=== PATIENT | female | born 1950 | race Caucasian/White ===

== ENCOUNTER → 2017-11-08 | Outpatient (CLI) | payer MEDICARE, OTHER ==
[2017-11-08 14:58] LABS: HCT 39.2 % (34.0-46.0); HGB 12.7 gm/dL (11.4-16.0); MCH 28.1 pg (25.0-35.0); MCHC 32.4 g/dL (31.0-37.0); MCV 86.9 fL (80.0-100.0); Mean Platelet Volume 7.8; Platelet Count 213 k/uL (150-450); RBC 4.51 m/uL (3.80-5.40); RDW 12.5 % (11.5-15.5); WBC 5.6 k/uL (3.8-10.6)
[2017-11-08 15:07] LABS: Albumin 4.1 g/dL (3.5-5.0); Calcium 10.9 mg/dL (8.4-10.2); Phosphorus 2.8 mg/dL (2.5-4.5); Potassium 4.8 mmol/L (3.5-5.1); Total Bilirubin 0.4 mg/dL (0.2-1.3); Total Protein 6.8 g/dL (6.3-8.2)
[2017-11-08 15:57] LABS: Appearance,Urine Clear (Clear); Bacteria,Urine Rare /hpf; Bilirubin,Urine Negative (Negative); Blood,Urine Moderate (Negative); Color,Urine Light Yellow; Glucose,Urine (UA) Negative (Negative); Ketones,Urine Negative (Negative); Leukocyte Esterase,Urine Trace (Negative); Nitrite,Urine Negative (Negative); Protein,Urine Negative (Negative); RBC,Urine 1 /hpf (0-5); Specific Gravity,Urine 1.004 (1.001-1.035); Squamous Epithelial Cell,Urine <1 /hpf (0-4); Urobilinogen,Urine <2.0 mg/dL (<2.0); WBC,Urine 9 /hpf (0-5)
== END | disposition home or self-care (01) ==
LOC: LABWHC1 14:22
PROVIDERS: ATTEND Internal Medicine
DX: D64.9 Anemia, unspecified (principal); E83.39 Other disorders of phosphorus metabolism; N39.0 Urinary tract infection, site not specified
CPT/HCPCS: 36415; 80053; 81001; 84100; 85027

== ENCOUNTER → 2017-11-08 | Outpatient (CLI) | payer MEDICARE, OTHER ==
--- NOTE | 2017-11-09 09:13 | US ---
EXAMINATION TYPE: US kidneys/renal and bladder DATE OF EXAM: 11/08/2017 COMPARISON: US CLINICAL HISTORY: R31.9 HEMATURIA,N39.0 FREQ URINARY TRACT INFECTION; self catheterizes since spinal surgery for tumor; bladder suspension EXAM MEASUREMENTS: Right Kidney: 9.6 x 4.7 x 3.6 cm Left Kidney: 10.7 x 5.0 x 5.3 cm Post Void Residual Volume: 8.8 mL Right Kidney: upper lateral cortical cyst (too small to characterize) = 0.6 x 0.7 x 0.4cm; lateral lo wer hyperechoic round focus (angiomyolipoma) = 0.7 x 0.6 x 0.5cm; on image #[id number] sonographic" sweat s ign" is noted as hypoechoic crescent shaped area adjacent to lower periphery. Left Kidney: multiple cortical cysts noted with largest inferior pole as simple cyst = 1.0 x 1.2 x 1. 1cm. Bladder: Image 768 demonstrates focal thickening posterior left laterally. Bilateral Jets seen: Yes Normal Post Void Residual: Yes IMPRESSION: 1. Urinary bladder is incompletely distended with circumferential wall thickening and trabeculation t hat may partially relate to incomplete distention, chronic urinary tract infection and partially rela te to postoperative change. However there is a focal area of thickening on a single image only in the posterior left lateral aspect of the urinary bladder on image 768 that could represent hemorrhage, t hick trabeculation, or less likely neoplasm. CT urogram could be performed for further evaluation. 2. Sequela of medical renal disease, bilateral renal cysts (2 of which are too small to accurately ch aracterize) and a benign right lower pole angiomyolipoma.
== END | disposition home or self-care (01) ==
LOC: RADUSWWP 13:28
PROVIDERS: ATTEND Urology
DX: R31.9 Hematuria, unspecified (principal); N39.0 Urinary tract infection, site not specified; N28.9 Disorder of kidney and ureter, unspecified; Q61.02 Congenital multiple renal cysts; D17.72 Benign lipomatous neoplasm of other genitourinary organ
CPT/HCPCS: 76770

== ENCOUNTER 2021-05-20 21:30 | Emergency (ER) | payer MEDICARE, OTHER ==
--- NOTE | 2021-05-20 21:50 | ED ---
ENT HPI - General Stated complaint: Nose Bleed Time Seen by Provider: 05/20/21 21:45 Source: RN notes reviewed, old records reviewed Limitations: no limitations - History of Present Illness Initial comments: This is a 70-year-old female to the emergency department today. Patient presents today for evaluation regards to nasal bleeding. Patient has significant bleeding from her nose. No blood thinners. No other complaints or trauma. MD complaint: epistaxis -: hour(s) Severity: moderate Severity scale (1-10): 4 Consistency: constant Improves with: none Worsens with: none Context-Epistaxis: other (Hypertension) Associated Symptoms: other (none) - Related Data Previous Rx's Medication Instructions Recorded Losartan/Hydrochlorothiazide 1 tab PO DAILY #60 tab 05/20/21 [Hyzaar 50-12.5 Tablet] Allergies Allergy/AdvReac Type Severity Reaction Status Date / Time enalaprilat [From Vasotec] AdvReac Nausea Verified 05/20/21 21:57 escitalopram [From Lexapro] AdvReac Nausea Verified 05/20/21 21:57 Review of Systems ROS Statement: Those systems with pertinent positive or pertinent negative responses have been documented in the HPI. ROS Other: All systems not noted in ROS Statement are negative. General Exam General appearance: alert, in no apparent distress Head exam: Present: atraumatic, normocephalic, normal inspection Eye exam: Present: normal appearance, PERRL, EOMI. Absent: scleral icterus, conjunctival injection, periorbital swelling ENT exam: Present: normal exam, mucous membranes moist Neck exam: Present: normal inspection. Absent: tenderness, meningismus, lymphadenopathy Respiratory exam: Present: normal lung sounds bilaterally. Absent: respiratory distress, wheezes, rales, rhonchi, stridor Cardiovascular Exam: Present: regular rate, normal rhythm, normal heart sounds. Absent: systolic murmur, diastolic murmur, rubs, gallop, clicks GI/Abdominal exam: Present: soft, normal bowel sounds. Absent: distended, tenderness, guarding, rebound, rigid Extremities exam: Present: normal inspection, full ROM, normal capillary refill. Absent: tenderness, pedal edema, joint swelling, calf tenderness Back exam: Present: normal inspection Neurological exam: Present: alert, oriented X3, CN II-XII intact Psychiatric exam: Present: normal affect, normal mood Skin exam: Present: warm, dry, intact, normal color. Absent: rash Course Vital Signs 05/20/21 05/20/21 05/20/21 21:48 22:30 23:15 Temperature 98.9 F Pulse Rate 96 92 91 Respiratory 18 18 18 Rate Blood Pressure 183/84 160/141 162/84 O2 Sat by Pulse 95 95 96 Oximetry - Reevaluation(s) Reevaluation #1: Medical record is reviewed Patient symptoms are improved here in the ER Patient informed results and questions answered Patient is in no acute distress Medical Decision Making - Medical Decision Making 70 female with right-sided epistaxis. Nose is packed bleeding is stopped and patient can be discharged home Disposition Clinical Impression: Right-sided epistaxis, Hypertension Disposition: HOME SELF-CARE Condition: Good Instructions (If sedation given, give patient instructions): Nosebleed (ED), Hypertension (ED) Prescriptions: Losartan/Hydrochlorothiazide [Hyzaar 50-12.5 Tablet] 1 tab PO DAILY #60 tab Is patient prescribed a controlled substance at d/c from ED?: No Referrals: Jerry Chu MD [Primary Care Provider] - 1-2 days
[2021-05-20 21:55] VITALS: RESP 18; TEMP 98.9
[2021-05-20] MEDS ORDERED: SILVER NITRATE APPLICATOR 1 EACH STICK..EA. TOPICAL STA (21:56)
[2021-05-20] MEDS ORDERED: LOSARTAN-HCTZ 50-12.5 MG 1 EACH TAB PO STA (22:18)
[2021-05-20 23:17] VITALS: BP 162/84; PULSE 91
== END 2021-05-21 00:15 | disposition home or self-care (01) ==
LOC: EC 21:30
DX: R04.0 Epistaxis (principal); I10 Essential (primary) hypertension
CPT/HCPCS: 99283

== ENCOUNTER 2023-04-01 21:55 | Emergency (ER) | payer MEDICARE, OTHER ==
[2023-04-01 22:06] VITALS: RESP 18
[2023-04-01] MEDS ORDERED: MORPHINE SULFATE 4 MG/ML SYRINGE IV STA (22:22)
--- NOTE | 2023-04-01 22:34 | CT ---
EXAM: CT Head Without Intravenous Contrast CLINICAL HISTORY: ITS.REASON CT Reason: Neuro deficit, acute, stroke suspected TECHNIQUE: Axial computed tomography images of the head/brain without intravenous contrast. CTDI is 27.06 mGy and DLP is 617 mGy-cm. This CT exam was performed using one or more of the following dose reduction techniques: automated exposure control, adjustment of the mA and/or kV according to patient size, and/or use of iterative reconstruction technique. COMPARISON: None. FINDINGS: Brain: No mass effect or acute infarct. No acute hemorrhage. Mild atrophy and chronic white matter disease. Ventricles: No hydrocephalus or midline shift. Bones/joints: No skull fracture. Soft tissues: No scalp hematoma. Sinuses: Clear. Mastoid air cells: No mastoid effusion. IMPRESSION: 1. Mild age-related findings. 2. No acute infarct, bleed, or acute intracranial abnormality.
--- NOTE | 2023-04-01 22:44 | CT ---
ADDENDUM - Added by Nohemi Duong M.D. on 04/01/2023 10:56 PM (-07:00) d/w Lynne: minimal left fd, left arm weakness. EXAM: CT Angiography Head With Intravenous Contrast CLINICAL HISTORY: ITS.REASON CT Reason: Neuro deficit, acute, stroke suspected TECHNIQUE: Axial computed tomographic angiography images of the head with intravenous contrast. CTDI is 27.06 mGy and DLP is 617 mGy-cm. This CT exam was performed using one or more of the following dose reduction techniques: automated exposure control, adjustment of the mA and/or kV according to patient size, and/or use of iterative reconstruction technique. MIP reconstructed images were created and reviewed. 65 ML Isovue-370 given IV. COMPARISON: None. FINDINGS: Right internal carotid artery: Patent. Right anterior cerebral artery: Patent. Right middle cerebral artery: Severe, long segment distal M1 stenosis. Right posterior cerebral artery: Patent. Right vertebral artery: Patent. Left internal carotid artery: Patent. Left anterior cerebral artery: Patent. Left middle cerebral artery: Patent. Left posterior cerebral artery: Patent. Left vertebral artery: Patent. Basilar artery: Patent. Other: IMPRESSION: 1. Severe right M1 stenosis. 2. No aneurysm or large vessel occlusion. EXAM: CT Angiography Neck With Intravenous Contrast CLINICAL HISTORY: ITS.REASON CT Reason: Neuro deficit, acute, stroke suspected TECHNIQUE: Routine carotid CT angiography protocol was performed with intravenous contrast. NASCET criteria using the distal ICAs for comparison were used for evaluation of stenoses. CTDI is 27.06 mGy and DLP is 617 mGy-cm. This CT exam was performed using one or more of the following dose reduction techniques: automated exposure control, adjustment of the mA and/or kV according to patient size, and/or use of iterative reconstruction technique. MIP reconstructed images were created and reviewed. 65 ML Isovue-370 given IV. COMPARISON: None. FINDINGS: Right common carotid artery: Patent. Right internal carotid artery: Patent. Right vertebral artery: Patent. Left common carotid artery: Patent. Left internal carotid artery: Patent. Left vertebral artery: Patent. Other: Severe ectatic ICA with mild atherosclerosis. No significant stenosis. Thyromegaly with multiple nodules and left-sided calcification. 5 mm right upper lobe pulmonary nodule. Lungs are incompletely evaluated, and the thyroid gland is not optimally evaluated by CT. IMPRESSION: 1. Ectatic ICA with mild atherosclerosis. 2. No dissection, occlusion, or significant stenosis. 3. 5 mm right upper lobe pulmonary nodule and thyromegaly with multiple nodules. CAROTID STENOSIS REFERENCE USING NASCET CRITERIA: % ICA stenosis = (1 - narrowest ICA diameter/diameter of distal cervical ICA) x 100. Mild - <50% stenosis. Moderate - 50-69% stenosis. Severe - 70-94% stenosis. Near occlusion - 95-99% stenosis. Occluded - 100% stenosis. <MYCVCSECTION> Communications: 04/01/23 22:49 Call Doctor Regarding Above results, called Dr. Batista on 04/01 22:49 (-04:00)
[2023-04-01 22:49] LABS: Basophils # (A) 0.1 k/uL (0-0.2); Basophils % (A) 1 %; Eosinophils # (A) 0.3 k/uL (0-0.7); Eosinophils % (A) 3 %; HCT 44.2 % (34.0-46.0); HGB 14.2 gm/dL (11.4-16.0); Hypochromasia Slight; Lymphocytes # (A) 1.6 k/uL (1.0-4.8); Lymphocytes % (A) 19 %; MCH 28.1 pg (25.0-35.0); MCHC 32.1 g/dL (31.0-37.0); MCV 87.4 fL (80.0-100.0); Mean Platelet Volume 7.8; Monocytes # (A) 0.4 k/uL (0-1.0); Monocytes % (A) 5 %; Neutrophils # (A) 5.9 k/uL (1.3-7.7); Neutrophils % (A) 71 %; Platelet Count 227 k/uL (150-450); RBC 5.06 m/uL (3.80-5.40); RDW 13.3 % (11.5-15.5); WBC 8.3 k/uL (3.8-10.6)
[2023-04-01 22:56] LABS: INR 0.9 (<1.2)
[2023-04-01 22:57] LABS: Partial Thromboplastin Time 23.1 sec (22.0-30.0); Prothrombin Time 9.8 sec (9.0-12.0)
[2023-04-01 22:58] LABS: ALT 19 U/L (4-34); AST 27 U/L (14-36); African American GFR (CKD) 48 (>60 ml/min/1.73 sqM); Albumin 4.4 g/dL (3.5-5.0); Alkaline Phosphatase 123 U/L (38-126); Anion Gap 9 mmol/L; Blood Urea Nitrogen 33 mg/dL (7-17); Calcium 10.2 mg/dL (8.4-10.2); Carbon Dioxide 28 mmol/L (22-30); Chloride 99 mmol/L (98-107); Creatine Kinase 80 U/L (30-135); Glucose 115 mg/dL (74-99); Non-African American GFR(CKD) 42 (>60 ml/min/1.73 sqM); Potassium 4.4 mmol/L (3.5-5.1); Sodium 136 mmol/L (137-145); Total Bilirubin 0.6 mg/dL (0.2-1.3); Total Protein 7.6 g/dL (6.3-8.2)
[2023-04-01] MEDS ORDERED: TICAGRELOR 90 MG TAB PO STA (23:31)
[2023-04-01] MEDS ORDERED: ASPIRIN 81 MG PO STA (23:31)
--- NOTE | 2023-04-01 23:31 | ED ---
Neuro HPI - General Chief Complaint: Neuro Symptoms/Deficit Stated Complaint: Possible TIA Time Seen by Provider: 04/01/23 22:04 Source: patient, EMS Mode of arrival: EMS Limitations: no limitations - History of Present Illness Is the patient presenting with stroke symptoms?: Yes Last Known Well Date: 04/01/23 Last Known Well Time: 19:30 -: hour(s) Initial Comments: This patient is 72-year-old woman who arrives from home by ambulance with complaint of left-sided weakness. The patient states she noticed that she was having some numbness of the left side of her face and left arm that started around 7:30. She states that she wanted to get into bed but found she was having hard time moving her left arm. The patient was eventually able to push herself backward until she reached the counter where the phone was and she called EMS. The patient states she has underlying history of low back tumor. He states that this was found when she was in her mid 20s. She had a surgery performed a hospital in [place], but she is not able to recall the name of the tumor. She subsequently had 3 radiation treatments. She states that the tumor has slowly recurred and now she is not able to walk due to the tumor. She does have chronic leg pain as well. Patient denies headache, change in vision. She has not noted change in speech or swallowing. Location: left face, left arm, left leg History of same: No Place: home Severity: moderate Quality: weak, numb Improves With: none Worsens With: none On Anticoagulants: No Context: sudden onset Associated Symptoms: denies other symptoms Treatments Prior to Arrival: none - Related Data Home Medications: Home Medications Medication Instructions Recorded Confirmed Aspirin EC [Ecotrin Low Dose] 81 mg PO HS 04/01/23 04/01/23 Ergocalciferol [Vitamin D2 (1250 1,250 mcg PO Q7D 04/01/23 04/01/23 Mcg = 07644 Iu)] Furosemide [Lasix] 20 mg PO HS 04/01/23 04/01/23 HYDROcodone/APAP 10-325MG [Chandler 1 tab PO TID 04/01/23 04/01/23 10-325] Trimethoprim [Trimpex] 100 mg PO HS 04/01/23 04/01/23 Allergies/Adverse Reactions: Allergies Allergy/AdvReac Type Severity Reaction Status Date / Time ezetimibe [From Zetia] Allergy Unknown Verified 04/01/23 22:47 enalaprilat [From Vasotec] AdvReac Nausea Verified 04/01/23 22:47 escitalopram [From Lexapro] AdvReac Nausea Verified 04/01/23 22:47 losartan AdvReac Swelling Verified 04/01/23 22:47 legs Review of Systems ROS Statement: Those systems with pertinent positive or pertinent negative responses have been documented in the HPI. ROS Other: All systems not noted in ROS Statement are negative. Constitutional: Denies: fever, chills Eyes: Denies: vision change ENT: Denies: hearing loss Respiratory: Denies: cough, dyspnea Cardiovascular: Denies: chest pain, palpitations, syncope Gastrointestinal: Denies: abdominal pain, vomiting, diarrhea, melena, hematochezia Genitourinary: Reports: other (Patient practices intermittent straight cath). Denies: dysuria, hematuria Musculoskeletal: Reports: as per HPI, back pain Skin: Denies: rash, lesions Neurological: Reports: as per HPI, weakness, numbness, abnormal gait. Denies: headache, confusion Hematological/Lymphatic: Denies: easy bleeding General Exam Limitations: no limitations General appearance: alert, in no apparent distress Head exam: Present: atraumatic, normocephalic Eye exam: Present: normal appearance, PERRL, EOMI. Absent: scleral icterus, conjunctival injection ENT exam: Present: normal oropharynx Neck exam: Present: normal inspection. Absent: tenderness Respiratory exam: Present: normal lung sounds bilaterally. Absent: respiratory distress, wheezes, rales, rhonchi, stridor Cardiovascular Exam: Present: regular rate, normal rhythm, systolic murmur. Absent: diastolic murmur, rubs, gallop GI/Abdominal exam: Present: soft. Absent: distended, tenderness, guarding, rebound, rigid, mass Extremities exam: Present: normal inspection, normal capillary refill, pedal edema (Bilateral edema to ankles.). Absent: calf tenderness Back exam: Present: normal inspection Neurological exam: Present: alert, oriented X3, motor sensory deficit Expanded Patient oriented to: Present: person, place, time Speech: Present: fluid speech Cranial nerves: EOM's Intact: Normal, Tongue Deviation: Normal Cerebellar function: Finger to Nose: Normal Sensory exam: Upper Extremity Light Touch: Abnormal Left, Lower Extremity Light Touch: Abnormal Right, Abnormal Left Motor strength exam: RUE: 5, LUE: 3 Eye Response: (4) open spontaneously Motor Response: (6) obeys commands Verbal Response: (5) oriented Skin exam: Present: warm, dry, intact, normal color. Absent: rash Stroke MDM - Lab Data Result diagrams: 04/01/23 22:23 04/01/23 22:11 Lab Results 04/01/23 04/01/23 04/01/23 Range/Units 22:11 22:23 22:23 WBC 8.3 (3.8-10.6) k/uL RBC 5.06 (3.80-5.40) m/uL Hgb 14.2 (11.4-16.0) gm/dL Hct 44.2 (34.0-46.0) % MCV 87.4 (80.0-100.0) fL MCH 28.1 (25.0-35.0) pg MCHC 32.1 (31.0-37.0) g/dL RDW 13.3 (11.5-15.5) % Plt Count 227 (150-450) k/uL MPV 7.8 Neutrophils % 71 % Lymphocytes % 19 % Monocytes % 5 % Eosinophils % 3 % Basophils % 1 % Neutrophils # 5.9 (1.3-7.7) k/uL Lymphocytes # 1.6 (1.0-4.8) k/uL Monocytes # 0.4 (0-1.0) k/uL Eosinophils # 0.3 (0-0.7) k/uL Basophils # 0.1 (0-0.2) k/uL Hypochromasia Slight PT 9.8 (9.0-12.0) sec INR 0.9 (<1.2) APTT 23.1 (22.0-30.0) sec Sodium 136 L (137-145) mmol/L Potassium 4.4 (3.5-5.1) mmol/L Chloride 99 (98-107) mmol/L Carbon Dioxide 28 (22-30) mmol/L Anion Gap 9 mmol/L BUN 33 H (7-17) mg/dL Creatinine 1.26 H (0.52-1.04) mg/dL Est GFR (CKD-EPI)AfAm 48 (>60 ml/min/1.73 sqM) Est GFR (CKD-EPI)NonAf 42 (>60 ml/min/1.73 sqM) Glucose 115 H (74-99) mg/dL Calcium 10.2 (8.4-10.2) mg/dL Total Bilirubin 0.6 (0.2-1.3) mg/dL AST 27 (14-36) U/L ALT 19 (4-34) U/L Alkaline Phosphatase 123 (38-126) U/L Creatine Kinase 80 (30-135) U/L Troponin I (0.000-0.034) ng/mL Total Protein 7.6 (6.3-8.2) g/dL Albumin 4.4 (3.5-5.0) g/dL 04/01/23 Range/Units 22:23 WBC (3.8-10.6) k/uL RBC (3.80-5.40) m/uL Hgb (11.4-16.0) gm/dL Hct (34.0-46.0) % MCV (80.0-100.0) fL MCH (25.0-35.0) pg MCHC (31.0-37.0) g/dL RDW (11.5-15.5) % Plt Count (150-450) k/uL MPV Neutrophils % % Lymphocytes % % Monocytes % % Eosinophils % % Basophils % % Neutrophils # (1.3-7.7) k/uL Lymphocytes # (1.0-4.8) k/uL Monocytes # (0-1.0) k/uL Eosinophils # (0-0.7) k/uL Basophils # (0-0.2) k/uL Hypochromasia PT (9.0-12.0) sec INR (<1.2) APTT (22.0-30.0) sec Sodium (137-145) mmol/L Potassium (3.5-5.1) mmol/L Chloride (98-107) mmol/L Carbon Dioxide (22-30) mmol/L Anion Gap mmol/L BUN (7-17) mg/dL Creatinine (0.52-1.04) mg/dL Est GFR (CKD-EPI)AfAm (>60 ml/min/1.73 sqM) Est GFR (CKD-EPI)NonAf (>60 ml/min/1.73 sqM) Glucose (74-99) mg/dL Calcium (8.4-10.2) mg/dL Total Bilirubin (0.2-1.3) mg/dL AST (14-36) U/L ALT (4-34) U/L Alkaline Phosphatase (38-126) U/L Creatine Kinase (30-135) U/L Troponin I <0.012 (0.000-0.034) ng/mL Total Protein (6.3-8.2) g/dL Albumin (3.5-5.0) g/dL - NIH Stroke Scale 1a. Level of Consciousness: (0) alert 1b. LOC Questions: (0) answers correctly 1c. LOC Commands: (0) performs tasks correctly 2. Best Gaze: (0) normal 3. Visual: (0) no visual loss 4. Facial Palsy: (1) minor paralysis 5a. Motor Arm Left: (2) some gravity effort 5b. Motor Arm Right: (0) no drift 6a. Motor Leg Left: (4) no movement 6b. Motor Leg Right: (0) no drift 7. Limb Ataxia: (1) present 1 limb 8. Sensory: (0) normal 9. Best Language: (0) no aphasia 10. Dysarthria: (0) normal 11. Extinction/Inattention: (0) no abnormality - Medical Decision Making The patient had chest x-ray which I interpreted as being negative for acute infiltrate, pneumothorax, congestive heart failure The patient had CT of the brain which I interpreted as being negative for acute bony injury or acute hemorrhage CT angiogram of the brain is injury by radiology, see above Was pt. sent in by a medical professional or institution (, PA, FISH FARM LABORER, urgent care, hospital, or half-way...) When possible be specific @ -[No] Did you speak to anyone other than the patient for history (EMS, parent, family, police, friend...)? What history was obtained from this source @ -[EMS did give history Did you review nursing and triage notes (agree or disagree)? Why? @ -[I reviewed and agree with nursing and triage notes] Were old charts reviewed (outside hosp., previous admission, EMS record, old EKG, old radiological studies, urgent care reports/EKG's, half-way records)? Report findings @ -[No old charts were reviewed] Differential Diagnosis (chest pain, altered mental status, abdominal pain women, abdominal pain men, vaginal bleeding, weakness, fever, dyspnea, syncope, headache, dizziness, GI bleed, back pain, seizure, CVA, palpatations, mental health, musculoskeletal)? @ -[Differential CVA Ischemic stroke, hemorrhagic stroke, brain tumor, atypical migraine, Wernicke's encephalopathy, seizure, multiple sclerosis, meningitis, encephalitis, hypoglycemia, Guillain-Evans, electrolytes disturbance, myasthenia gravis.... This is not meant to be an all-inclusive list EKG interpreted by me (3pts min.). @ -[As above] X-rays interpreted by me (1pt min.). @ -[As above CT interpreted by me (1pt min.). @ -[Asthma U/S interpreted by me (1pt. min.). @ -[None done] What testing was considered but not performed or refused? (CT, X-rays, U/S, labs)? Why? @ -[None] What meds were considered but not given or refused? Why? @ -[None] Did you discuss the management of the patient with other professionals (professionals i.e. , PA, FISH FARM LABORER, lab, RT, psych nurse, medical social worker, syrup mixer assistant, teacher, founder and chief executive officer, case advocate)? Give summary @ -[Case is discussed with the stroke interventional team, they will accept the patient for transfer to the interventional suite Was smoking cessation discussed for >3mins.? @ -[No] Was critical care preformed (if so, how long)? @ -[No] Were there social determinants of health that impacted care today? How? (Homelessness, low income, unemployed, alcoholism, drug addiction, transportation, low edu. Level, literacy, decrease access to med. care, assisted, rehab)? @ -[No] Was there de-escalation of care discussed even if they declined (Discuss DNR or withdrawal of care, Hospice)? DNR status @ -[No] What co-morbidities impacted this encounter? (DM, HTN, Smoking, COPD, CAD, Cancer, CVA, ARF, Chemo, Hep., AIDS, mental health diagnosis, sleep apnea, morbid obesity)? @ -[None] Was patient admitted / discharged? Hospital course, mention meds given and route, prescriptions, significant lab abnormalities, going to OR and other pertinent info. @ -As above Undiagnosed new problem with uncertain prognosis? @ -[No] Drug Therapy requiring intensive monitoring for toxicity (Heparin, Nitro, Insulin, Cardizem)? @ -[No] Were any procedures done? @ -[No] Diagnosis/symptom? @ -[Acute ischemic stroke Acute, or Chronic, or Acute on Chronic? @ -[default] Uncomplicated (without systemic symptoms) or Complicated (systemic symptoms)? @ -[default] Side effects of treatment? @ -[No] Exacerbation, Progression, or Severe Exacerbation? @ -[No] Poses a threat to life or bodily function? How? (Chest pain, USA, MS, pneumonia, PE, COPD, DKA, ARF, appy, cholecystitis, CVA, Diverticulitis, Homicidal, Suicidal, threat to staff... 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 History of Any Multi-Drug Resistant Organisms: MRSA Date of last positivie culture/infection: 2004 MDRO Source:: spine Past Surgical History: Hysterectomy, Tonsillectomy Additional Past Surgical History / Comment(s): thyroid removal, bladder sling Past Psychological History: No Psychological Hx Reported Smoking Status: Former smoker Past Alcohol Use History: None Reported Past Drug Use History: None Reported Course Vital Signs 04/01/23 04/01/23 04/01/23 21:56 22:11 22:36 Pulse Rate 97 98 94 Respiratory 18 18 18 Rate Blood Pressure 248/124 242/103 O2 Sat by Pulse 95 96 95 Oximetry 04/01/23 04/01/23 04/01/23 22:41 23:05 23:41 Pulse Rate 95 97 101 H Respiratory 18 18 18 Rate Blood Pressure 251/101 242/111 234/109 O2 Sat by Pulse 94 L 95 94 L Oximetry - Reevaluation(s) Reevaluation #1: 04/01/23 23:35 Patient is seen and made a code TPA on arrival. Case is discussed with the neuro interventional team. Due to the uncertainty related to patient's spinal tumor, they feel that TPA represents more risk than benefit, and after review of CT they had discussion with patient and will take her to the interventional suite. Critical Care Time Critical Care Time: Yes (40 minutes) Disposition Clinical Impression: Cerebrovascular accident (CVA) Disposition: OTHER INSTITUTION NOT DEFINED Condition: Serious Is patient prescribed a controlled substance at d/c from ED?: No Referrals: Jerry Chu MD [Primary Care Provider] - 1-2 days - Out of Hospital Transfer - Req. Specs Out of Hospital Transfer - Requested Specifics: Other Emergency Center
[2023-04-01 23:57] VITALS: BP 234/109; PULSE 101
--- NOTE | 2023-04-02 00:03 | XR ---
EXAM: XR Chest, 1 View CLINICAL HISTORY: ITS.REASON XR Reason: altered mental status TECHNIQUE: Frontal view of the chest. COMPARISON: None. FINDINGS: Lungs: Subtle interstitial prominence left lower lobe, may be scarring or atelectasis. Mild pneumonia difficult to entirely exclude. No consolidation. Pleural space: No pneumothorax. Heart: No cardiomegaly. Mediastinum: Unremarkable. Bones/Soft Tissues: No acute abnormality. IMPRESSION: 1. Mild scarring, atelectasis or infiltrate left lower lobe.
== END 2023-04-02 00:10 | disposition other institution (70) ==
LOC: EC 21:55
DX: I63.9 Cerebral infarction, unspecified (principal); I10 Essential (primary) hypertension; Z87.891 Personal history of nicotine dependence; Z79.82 Long term (current) use of aspirin; Z79.899 Other long term (current) drug therapy; Z88.6 Allergy status to analgesic agent; Z88.8 Allergy status to other drugs, medicaments and biological substances
CPT/HCPCS: 99291 ×2; 96374 ×2; 36415; 80053; 82550; 84484; 85025; 85610; 85730; 71045; 70496; 70450; 70498; J2270; Q9967